=== PATIENT | female | born 1965 | race Caucasian/White ===

== ENCOUNTER 2022-12-27 11:28 | Outpatient (CLI) | payer BC, SELFPAY ==
--- NOTE | ~2022-12-27 | MR_ITS ---
EXAMINATION: MR knee RT wo con DATE: 12/27/2022 12:26 INDICATION: right knee joint pain x yrs worsening s/p twisting inj 10/2022 TECHNIQUE: Magnetic resonance imaging (MRI) of the right knee was performed without intravenous contr ast. Sequences included axial PD-weighted FS FSE, coronal PD-weighted FSE and PD-weighted FS FSE, sag ittal PD-weighted FSE, and sagittal T2-weighted FS FSE. COMPARISON: None. FINDINGS: Medial compartment: Focal vertical articular surface tear in the anterior horn. Oblique undersurface tear of the posterio r horn and body, with a small flap of meniscal tissue extending into the inferior medial recess. Apic al blunting of the posterior horn. Mild diffuse cartilage thinning. Mild osteophytosis. Lateral compartment: Meniscal fraying at the apex. Minimal blunting of the posterior horn. Mild osteophytosis. Patellofemoral compartment: Moderate partial thickness cartilage abnormality and thickening on the lateral facet with subchondral cyst formation. Retinacula intact. Ligaments and tendons: The ACL, PCL, MCL, and LCL are intact. Remaining flexor and extensor tendons are intact. Minimal hype rintensity deep to the pes anserine tendons. Fluid: Moderate Mtz's cyst. Small volume joint fluid. Osseous/other: No suspicious focal or diffuse marrow signal. IMPRESSION: Complex medial meniscal tear, with a flap of displaced meniscal tissue extending inferiorly into the medial joint recess. Mild-moderate tricompartmental osteoarthritic change. Mild pes anserine bursitis. Mtz's cyst. Reviewed, dictated and finalized at location [facility]. IMPRESSION: Complex medial meniscal tear, with a flap of displaced meniscal tissue extendin g inferiorly into the medial joint recess. Mild-moderate tricompartmental osteoarthritic change. Mild pes anserine bursitis. Mtz's cyst.
== END 2022-12-27 11:29 ==
PROVIDERS: PCP Hospitalist; Visit Provider Orthopaedic Surgery
DX: S83.231A Complex tear of medial meniscus, current injury, right knee, initial encounter (principal); M17.11 Unilateral primary osteoarthritis, right knee; M71.21 Synovial cyst of popliteal space [Baker], right knee
CPT/HCPCS: 73721

== ENCOUNTER 2023-02-06 09:10 | Outpatient (CLI) | payer BC, SELFPAY ==
--- NOTE | ~2023-02-06 | US_ITS ---
EXAMINATION:US venous doppler LE RT INDICATION:Right lower extremity pain and swelling TECHNIQUE: Multiple grayscale, color flow and Doppler images of the right lower extremity deep venous systems were obtained and reviewed. COMPARISON:No prior studies FINDINGS: The common femoral, superficial femoral and popliteal veins demonstrate normal respiratory variation, augmentation and compressibility. Color flow is also seen within the posterior tibial, pe roneal, greater saphenous and profunda veins. There are complex fluid structures in the right posteri or knee soft tissues, largest measuring 8.3 cm, compatible with Mtz's cysts. IMPRESSION: 1: No lower extremity deep venous thrombosis. Reviewed, dictated and finalized at location [facility]. K TOPPER
== END 2023-02-06 09:11 | disposition home or self-care (01) ==
PROVIDERS: PCP Hospitalist
DX: I82.409 Acute embolism and thrombosis of unspecified deep veins of unspecified lower extremity (principal)
CPT/HCPCS: 93971

== ENCOUNTER 2023-06-08 10:31 | Outpatient (CLI) | payer BC, SELFPAY ==
--- NOTE | ~2023-06-08 | CT_ITS ---
EXAMINATION: CT abdomen pelvis wo/w con DATE: 06/08/2023 11:26 INDICATION: Gross hematuria TECHNIQUE: Computed tomography (CT) of the abdomen and pelvis was performed without and subsequently with 130 CC Omnipaque 350 intravenous contrast. Automated exposure control and iterative reconstructi on technique were employed. Exam dose: 1838.97 mGy-cm total exam DLP. COMPARISON: June 08, 2023 KUB FINDINGS: The lung bases are clear. Heart size is normal. No pericardial or pleural effusion. There are a couple 4 mm and smaller hepatic cysts. The liver, gallbladder, bile ducts, pancreas and pancreatic dust are otherwise unremarkable. Normal splenic size. Normal adrenal glands. No renal space occupying mass lesion or urinary tract calculus or hydroureteronephrosis. The urinary bladder, uterus and adnexal areas are unremarkable. There is calcification but no aneurysm of the abdominal aorta. No intraperitoneal or retroperitoneal or pelvic mass lesion, lymphadenopathy or ascites is detected. The appendix is surgically absent by history. Diverticulosis of the colon. No evidence of diverticu litis. No bowel obstruction or intraperitoneal free air. No suspicious osteolytic or osteoblastic lesion. IMPRESSION: No urinary tract calculus or mass lesion is detected. Diverticulosis of the colon Status post appendectomy Reviewed, dictated and finalized at [facility]. Reviewed, dictated and finalized at location [facility].
--- NOTE | ~2023-06-08 | XR_ITS ---
Supine and upright views of the abdomen Clinical history: Hematuria Findings: Bowel gas pattern is nonspecific. No evidence for obstruction or free air. No abnormal mass lesion or calcification is seen. Osseous structures are intact. Impression: No significant abnormality is seen. Reviewed, dictated and finalized at [facility]. Impression: No significant abnormality is seen.
[2023-06-09 13:33] LABS: Estimated Glomerular Filt Rate > 60
== END 2023-06-08 10:32 ==
PROVIDERS: PCP Nurse Practitioner Family; Visit Provider Nurse Practitioner Family
DX: R31.0 Gross hematuria (principal); K57.30 Diverticulosis of large intestine without perforation or abscess without bleeding
CPT/HCPCS: 74018; 74178; Q9967

== ENCOUNTER 2024-01-04 01:48 | Day surgery (SDC) | payer BC, SELFPAY ==
[2023-12-22 14:20] VITALS: BMI 27.3
--- NOTE | 2024-01-03 15:12 | WPDANESEPP ---
Anes - Eval Pre Procedure Procedure: Operation Date: 01/04/24 09:30 Proposed Procedures p Colonoscopy - Leighton Awad MD Date/Time: 01/03/24 15:12 Pre Op Diagnosis: Fam. Hx. colon CA Patient Data Age: 58 Gender: F Height: 1.78 m Weight: 86.5 kg Allergies Allergy/AdvReac Type Severity Reaction Status Date / Time No Known Allergies Allergy Verified 12/22/23 14:06 Home Medications Medication Instructions Recorded Confirmed Type meloxicam 15 mg tablet 15 mg PO DAILY PRN Pain #30 tabs 07/31/20 12/22/23 Rx levothyroxine 88 mcg tablet 88 mcg PO DAILY #90 tabs 01/30/21 12/22/23 Rx atorvastatin 20 mg tablet 20 mg PO DAILY #90 tabs 08/01/21 12/22/23 Rx ergocalciferol (vitamin D2) 1,250 See Rx Instructions .Route .COMPLEX 12/22/23 12/22/23 History mcg (50,000 unit) capsule Patient hx anesthesia problems: none Family hx anesthesia problems: none Results Review: All pre-operative results and documents have been reviewed as part of the pre-operative evaluation. [facility] Past Medical History Medical History DM (diabetes mellitus) Resolved HTN (hypertension) Surgical History Surgical History H/O bladder repair surgery History of tonsillectomy and adenoidectomy S/P appy Family History Family History Father Hypertension Family history of elevated blood lipids Family history of arthritis Sibling Hypertension Mother Family history of heart disease in male family member before age 55 Family history of cardiovascular disease Grandparent Diabetes mellitus Mother Family history of migraine headaches Asthma Family history of cardiovascular disease Carcinoma of colon Family history of coronary artery disease Father Hypertension Family history of rheumatoid arthritis Family history of chronic obstructive pulmonary disease Family history of coronary artery disease Family history of congestive heart failure Family history of hearing loss Sibling Hypertension Social History Social History Smoking packs per day: 1 Smoking cigarettes per day: 20.0 Years smoked: 20 Smoking pack-years: 20.00 Smoking status: Former smoker Tobacco type: cigarettes Second hand tobacco smoke exposure: No Smoking end date: 03/09/08 Alcohol intake: current Drinks per week: 2 Substance use: never Substance use type: does not use Living arrangements: with family Spiritual care concerns: No Exam Day of Procedure 01/03/24 15:12
[2024-01-04 07:59] VITALS: BP 128/87; PULSE 67; RESP 16; TEMP 36; O2SAT 100; BMI 27.6
[2024-01-04] MEDS: LACTATED RINGERS 1,000 ML 150 ML IV CONT (08:06)
--- NOTE | 2024-01-04 08:37 | P.PNAN_ITS ---
Anes - Initial Pre Proc Eval Procedure: Operation Date: 01/04/24 09:30 Proposed Procedures p Colonoscopy - Leighton Awad MD Date/Time: 01/04/24 08:37 Surgeon: Leighton Awad MD Pre Op Diagnosis: Fam. Hx. colon CA Patient Data Age: 58 Gender: F Height: 1.78 m Weight: 87.5 kg Last Vital Signs Temp 36.0 C L 01/04/24 07:59 Pulse 67 01/04/24 07:59 Resp 16 01/04/24 07:59 BP 128/87 01/04/24 07:59 Pulse Ox 100 01/04/24 07:59 O2 Del Method Room Air 01/04/24 07:59 Allergies Allergy/AdvReac Type Severity Reaction Status Date / Time No Known Allergies Allergy Verified 01/04/24 07:57 Home Medications Medication Instructions Recorded Confirmed Type meloxicam 15 mg tablet 15 mg PO DAILY PRN Pain #30 tabs 07/31/20 01/04/24 Rx levothyroxine 88 mcg tablet 88 mcg PO DAILY #90 tabs 01/30/21 01/04/24 Rx atorvastatin 20 mg tablet 20 mg PO DAILY #90 tabs 08/01/21 01/04/24 Rx ergocalciferol (vitamin D2) 1,250 See Rx Instructions .Route .COMPLEX 12/22/23 01/04/24 History mcg (50,000 unit) capsule Patient hx anesthesia problems: none Family hx anesthesia problems: none Results Review: All pre-operative results and documents have been reviewed as part of the pre- operative evaluation. [facility] Past Medical History Medical History DM (diabetes mellitus) Resolved HTN (hypertension) Surgical History Surgical History H/O bladder repair surgery History of tonsillectomy and adenoidectomy S/P appy Family History Family History Father Hypertension Family history of elevated blood lipids Family history of arthritis Sibling Hypertension Mother Family history of heart disease in male family member before age 55 Family history of cardiovascular disease Grandparent Diabetes mellitus Mother Family history of migraine headaches Asthma Family history of cardiovascular disease Carcinoma of colon Family history of coronary artery disease Father Hypertension Family history of rheumatoid arthritis Family history of chronic obstructive pulmonary disease Family history of coronary artery disease Family history of congestive heart failure Family history of hearing loss Sibling Hypertension Social History Social History Smoking packs per day: 1 Smoking cigarettes per day: 20.0 Years smoked: 20 Smoking pack-years: 20.00 Smoking status: Former smoker Tobacco type: cigarettes Second hand tobacco smoke exposure: No Smoking end date: 03/09/08 Alcohol intake: current Drinks per week: 2 Substance use: never Substance use type: does not use Living arrangements: with family Spiritual care concerns: No Anes - Eval Final PreProcedure Day of Procedure 01/04/24 08:37 Patient weight: overweight Heart: regular rate and rhythm Lungs: clear to auscultation Airway: Mallampati scale class II Neurological: alert and oriented Last oral intake: >/= 8 hours ASA classification: III Emergent: no Anesthetic plan: proceed Anesthesia type and monitoring: general GIVS and standard monitoring Results Review: All pre-operative results and documents have been reviewed as part of the pre- operative evaluation. Informed Consent: The patient's anesthetic plan and its attendant risks and benefits were discussed with the patient/family/POA. Questions were solicited and answers provided to the satisfaction of the patient/family/POA.
--- NOTE | 2024-01-04 08:43 | PM.HPGS ---
History of Present Illness History of Present Illness Consent: Risks, benefits, and alternatives have been discussed and questions answered. Patient agrees to proceed with procedure. Chief complaint: Fam. Hx. colon CA Narrative: Lucia Perry is a 58 year old female with last colonoscopy 2018, several paternal/maternal uncles/aunts with colon cancer Review of Systems Review of Systems: All systems reviewed & are unremarkable except as noted in HPI and below PMFSH Past Medical History Medical History (Updated 01/04/24 @ 08:44 by Leighton Awad MD) DM (diabetes mellitus) Resolved Family history of colon cancer HTN (hypertension) Surgical History Surgical History H/O bladder repair surgery History of tonsillectomy and adenoidectomy S/P appy Family History Family History Father Hypertension Family history of elevated blood lipids Family history of arthritis Sibling Hypertension Mother Family history of heart disease in male family member before age 55 Family history of cardiovascular disease Grandparent Diabetes mellitus Mother Family history of migraine headaches Asthma Family history of cardiovascular disease Carcinoma of colon Family history of coronary artery disease Father Hypertension Family history of rheumatoid arthritis Family history of chronic obstructive pulmonary disease Family history of coronary artery disease Family history of congestive heart failure Family history of hearing loss Sibling Hypertension Social History Social History Smoking packs per day: 1 Smoking cigarettes per day: 20.0 Years smoked: 20 Smoking pack-years: 20.00 Smoking status: Former smoker Tobacco type: cigarettes Second hand tobacco smoke exposure: No Smoking end date: 03/09/08 Alcohol intake: current Drinks per week: 2 Substance use: never Substance use type: does not use Living arrangements: with family Spiritual care concerns: No Meds Home Medications and Allergies Home Medications Medication Instructions Recorded Confirmed Type meloxicam 15 mg tablet 15 mg PO DAILY PRN Pain #30 tabs 07/31/20 01/04/24 Rx levothyroxine 88 mcg tablet 88 mcg PO DAILY #90 tabs 01/30/21 01/04/24 Rx atorvastatin 20 mg tablet 20 mg PO DAILY #90 tabs 08/01/21 01/04/24 Rx ergocalciferol (vitamin D2) 1,250 See Rx Instructions .Route .COMPLEX 12/22/23 01/04/24 History mcg (50,000 unit) capsule Allergies Allergy/AdvReac Type Severity Reaction Status Date / Time No Known Allergies Allergy Verified 01/04/24 07:57 Vital Signs Vital Signs - 24 hr 01/04/24 07:59 Temperature 96.8 F L Pulse Rate 67 Respiratory Rate 16 Blood Pressure 128/87 Pulse Oximetry 100 Oxygen Delivery Room Air Exam Const: General: comfortable and no acute distress HENMT: Face/Nose/Sinus: Normal nares present Eyes: General: appearance normal, both eyes and all related structures Neck: Neck: no JVD Resp: Auscultation: clear to auscultation bilaterally Cardio: Rate: regular rate Rhythm: regular rhythm GI: Inspection: non-distended GI Palp: Yes Soft to palpation Skin: General skin exam: normal color Neuro: General: gait normal Speech: normal speech Extrem: General: normal to inspection Psych: Mental Status: mental status grossly normal Assessment and Plan Assessment and plan (1) Family history of colon cancer: Code(s): Z80.0 - Family history of malignant neoplasm of digestive organs Status: Acute Assessment and Plan: colonoscopy
[2024-01-04 09:08] VITALS: BP 105/66; PULSE 55; RESP 18; O2SAT 97
[2024-01-04 09:18] VITALS: BP 111/73; PULSE 50; RESP 18; O2SAT 98
[2024-01-04 09:28] VITALS: BP 113/77; PULSE 50; RESP 15; O2SAT 98
== END 2024-01-04 09:49 | disposition home or self-care (01) ==
PROVIDERS: PCP Nurse Practitioner Family; Referring Provider Nurse Practitioner Family; Visit Provider Internal Medicine Gastroenterology
PROC: 0DJD8ZZ Inspection of Lower Intestinal Tract, Via Natural or Artificial Opening Endoscopic (ICD-10-PCS; CPT 45378; principal; 2024-01-04 09:30)
DX: Z12.11 Encounter for screening for malignant neoplasm of colon (principal); K64.8 Other hemorrhoids; K57.30 Diverticulosis of large intestine without perforation or abscess without bleeding; I10 Essential (primary) hypertension; E11.9 Type 2 diabetes mellitus without complications; Z98.890 Other specified postprocedural states; Z87.891 Personal history of nicotine dependence; Z80.0 Family history of malignant neoplasm of digestive organs; Z82.49 Family history of ischemic heart disease and other diseases of the circulatory system
CPT/HCPCS: 45378; J2003; J2704; J7120

== ENCOUNTER 2024-02-09 08:03 | Outpatient (CLI) | payer BC, SELFPAY ==
--- NOTE | ~2024-02-09 | DEXA_ITS ---
Bone Density Report Name: DIONE HAND Age: 58 Sex: Female Ethnicity: White Date of : 1965 Indication: postmenopausal; screening for osteoporosis; height loss; Referring Provider: ELICIA, LIDIA Study: Bone densitometry was performed. Exam Date: February 09, 2024 Accession number: [id number] Bone Density: Region BMD T-score Z-score Classification AP Spine(L1-L4) 1.108 0.6 1.8 Normal Femoral Neck (Left) 0.826 -0.2 1.0 Normal Total Hip (Left) 1.000 0.5 1.3 Normal Femoral Neck (Right) 0.746 -0.9 0.2 Normal Total Hip (Right) 0.953 0.1 0.9 Normal Total Hip Mean 0.977 0.3 1.1 Normal World Health Organization criteria for BMD impression classify patients as: Normal (T-score at or above -1.0), Osteopenia (T-score between -1.0 and -2.5), or Osteoporosis (T-score at or below -2.5). 10-year Fracture Risk: FRAX not reported because: All T-scores for Spine Total, Hip Total, Femoral Neck at or above -1.0 Clinical Information Provided by Patient: Has used the following medications: Vitamin D Patient maximum height was 70 Menopause Age: 46 No regular weight bearing exercise Drinks caffeinated beverages Onset of menses at age 17 Number of children 3 Impression: The patient has normal bone mass. Discussion: BONE DENSITY IS ABOVE THE MINIMUM DESIRABLE LEVEL AT ALL SKELETAL SITES TESTED. This patient?s bone mineral density is above the minimum desirable level (T-score -1.0 or better) at all sites measured. The patient should follow a healthful lifestyle (good nutrition with adequate calcium and vitamin D, and appropriate weight-bearing exercise). Follow-Up: Consider repeating this study in 5 years or sooner if there is some new clinical indication. Reported by: OTIS on 02/09/2024 8:43:00 AM. Reviewed, dictated and finalized at location [facility]
== END 2024-02-09 08:04 | disposition home or self-care (01) ==
LOC: ANHIMG 08:04
PROVIDERS: PCP Nurse Practitioner Family; Visit Provider Nurse Practitioner Women's Health
DX: Z78.0 Asymptomatic menopausal state (principal)
CPT/HCPCS: 77080